=== PATIENT | female | born 1975 ===

== ENCOUNTER 2017-01-25 02:34 | Emergency (ER) | payer OTHER, MEDICAID ==
[2017-01-25 03:26] LABS: SPECIFIC GRAVITY 1.015 (1.001-1.030); URINE APPEARANCE CLEAR; URINE BILIRUBIN NEGATIVE (NEGATIVE); URINE BLOOD 3+ (NEGATIVE); URINE COLOR LIGHT YELLOW; URINE GLUCOSE (UA) NEGATIVE (NEGATIVE); URINE LEUKOCYTE ESTERASE NEGATIVE (NEGATIVE); URINE NITRITE NEGATIVE (NEGATIVE); URINE PROTEIN NEGATIVE (NEGATIVE); URINE UROBILINOGEN NORMAL (0-1 mg/dl)
[2017-01-25 03:33] LABS: URINE BACTERIA 0
[2017-01-25] MEDS ORDERED: MAALOX/LIDO2%VISC/SIMETHICONE 40 ML BOT ONE (03:50)
[2017-01-25] MEDS ORDERED: IBUPROFEN 800 MG TABLET ONE (03:50)
[2017-01-25] MEDS ORDERED: ONDANSETRON 4 MG ODT TAB ONE (03:50)
[2017-01-25 04:13] LABS: HCG,QUALITATIVE URINE NEGATIVE
[2017-01-25 04:22] LABS: ABSOLUTE NEUTROPHIL COUNT 4.4 K/mm3 (1.8-7.7); BASO % 0.4 % (0.2-1.0); EOS # 0.2 (0.0-0.5); EOS % 2.6 % (0.9-2.9); HEMATOCRIT 39.8 % (37.0-47.0); HEMOGLOBIN 13.1 gm/l (12.0-16.0); IMM NEUT% 0.1 % (0-1); LYMPH # 2.4 (1.0-4.8); LYMPH % 31.9 % (15-45); MEAN CELL VOLUME 87.7 fl (81.0-99.0); MEAN CORPUSCULAR HEMOGLOBIN 28.9 pg (27.0-31.0); MEAN CORPUSCULAR HGB CONC 32.9 g/dl (33.0-37.0); MONO # 0.5 (0.0-0.8); MONO % 6.3 % (4-12); NEUT % 58.7 % (43-75); PLATELET COUNT 218 K/mm3 (130-400); RED CELL DISTRIBUTION WIDTH 12.3 % (11.5-14.5)
[2017-01-25] MEDS ORDERED: HYDROCODONE/ACETAMINOPHEN 5/325MG TABLET ONE (04:37)
[2017-01-25 05:14] LABS: ALB/GLOB RATIO 1.4 (>1.0); ALBUMIN 4.4 gm/dL (3.5-5.7); CALCIUM 9.5 mg/dL (8.6-10.3)
== END 2017-01-25 05:00 | disposition home or self-care (01) ==
LOC: ED 02:34
DX: J11.1 Influenza due to unidentified influenza virus with other respiratory manifestations (principal)
CPT/HCPCS: 83690; 81025; 85025; 80053; 81001; 99284 ×2; A9270 ×4